=== PATIENT | female | born 1970 | race Caucasian/White ===

== ENCOUNTER 2016-06-28 07:38 | Day surgery (SDC) | payer OTHER ==
[~2016-06-28] VITALS: Ht 160 cm; Wt 55.8 kg
[~2016-06-28 07:38] MED LIST: BUDESONIDE EC3 MG PO; CURCUMIN PO; CYTOTEC200 MCG PO; DIGESTIVE EN1 TABLET PO; GLUTAMINE PO; MECLIZINE HCL25 MG PO; ONE DAILY WITH1 EACH PO; PREDNISONE10 MG PO; PREDNISONE20 MG PO; PROBIOTIC1 EAC3 PO; TRAMADOL HCL50 MG PO; VITAMIN B12-FO1 EACH PO; VITAMIN D10000 UNIT PO; VITAMIN D22000 UNIT PO; ZINC30 MG PO; ZOFRAN ODT4 MG PO
[2016-06-28 08:10] VITALS: BP 108/69
[2016-06-28] MEDS ORDERED: OXAYDO5 MG PO (12:00)
[2016-06-28] MEDS ORDERED: BACTRIM,SEPT1 TABLET PO (12:00)
[2016-06-28] MEDS ORDERED: CORTEF5 M1 PO ×2 (12:00→12:23)
[2016-06-28] MEDS ORDERED: CORTEF20 M1 PO ×2 (12:00→12:23)
[2016-06-28 13:54] VITALS: BP 104/53
[2016-06-28 14:53] VITALS: BP 106/59
[2016-06-28 15:44] VITALS: BP 107/55
== END 2016-06-28 15:50 | disposition home or self-care (01) ==
LOC: SDC 07:38
DX: N92.1 Excessive and frequent menstruation with irregular cycle (principal); E61.1 Iron deficiency; N72 Inflammatory disease of cervix uteri; N80.0 Endometriosis of uterus; N83.202 Unspecified ovarian cyst, left side; S37.23XA Laceration of bladder, initial encounter; Y92.234 Operating room of hospital as the place of occurrence of the external cause; Z80.41 Family history of malignant neoplasm of ovary; Z79.52 Long term (current) use of systemic steroids; Z82.49 Family history of ischemic heart disease and other diseases of the circulatory system; Z83.49 Family history of other endocrine, nutritional and metabolic diseases
CPT/HCPCS: 88307; J0131; J1100; J1170; J1580; J1720; J2175; J2250; J2405; J2710; J3010; J7050

== ENCOUNTER 2016-07-03 17:45 | Emergency (ER) | payer OTHER ==
[~2016-07-03] VITALS: Ht 160 cm; Wt 56.3 kg
[~2016-07-03 17:45] MED LIST changes: +BACTRIM,SEPT1 TABLET PO; +CORTEF20 M1 PO; +CORTEF5 M1 PO; +OXAYDO5 MG PO
[2016-07-03 18:15] LABS: HEMATOCRIT 39.7 % (36.0-46.0); MCH 25.5 PG (29.0-34.0); MCHC 30.2 G/DL (30.0-36.0); MCV 84.3 FL (83-99); MEAN PLAT.VOLUME 8.9 uM^3 (9.5-12.4); PLATELET COUNT 329 K/uL (156-360); RBC DIS.WIDTH-CV 20.2 % (11.8-14.6); RBC DIS.WIDTH-SD 59.9 % (39-53); RED BLOOD COUNT 4.71 M/uL (3.80-5.20); WHITE BLOOD COUNT 10.1 K/uL (4.1-10.2)
[2016-07-03 18:24] LABS: CHLORIDE 106 mEq/L (99-109); POTASSIUM 4.4 mEq/L (3.7-5.4); SODIUM 138 mEq/L (136-147)
[2016-07-03 18:26] LABS: GLUCOSE 133 mg/dL (70-99)
[2016-07-03 18:27] LABS: ANION GAP 10 MEQ/L (2-14)
[2016-07-03 18:28] LABS: TOTAL BILIRUBIN 0.3 mg/dL (0.0-1.0)
[2016-07-03 18:30] LABS: ALKALINE PHOSPHATASE 58 IU/L (3-129); GFR ESTIMATE (CALCULATED) 51 mL/min/
[2016-07-03 18:31] LABS: UREA NITROGEN (BUN) 17 mg/dL (9-23)
[2016-07-03 18:33] LABS: LIPASE 48 U/L (1.0-51.0)
[2016-07-03 18:42] LABS: ADD MIUA? YES; BILIRUBIN NEGATIVE; BLOOD LARGE; COLOR YELLOW ((YELLOW)); GLUCOSE (STRIP) NEGATIVE; KETONES NEGATIVE; LEUKOCYTES NEGATIVE; NITRITE NEGATIVE; PROTEIN (STRIP) 30; SPECIFIC GRAVITY 1.017 (1.000-1.030); UROBILINOGEN 0.2 MG/DL (0.2-1.0)
[2016-07-03 18:53] LABS: RED BLOOD CELLS TNTC /HPF (0-5)
[2016-07-03 18:54] LABS: BACTERIA 1+ /HPF; CALCIUM OXALATE CRYSTALS 1+ /HPF; CRYSTALS PRESENT; UCUL ADDED? NO; WHITE BLOOD CELLS 0-5 /HPF (0-5)
[2016-07-03 18:55] LABS: EPITHELIAL CELLS RARE /HPF; MUCUS TRACE /LPF
[2016-07-03] MEDS ORDERED: CIPRO500 MG PO (20:18)
[2016-07-03] MEDS ORDERED: FLAGYL500 MG PO (20:18)
[2016-07-03 20:37] VITALS: BP 115/65
== END 2016-07-03 20:38 | disposition home or self-care (01) ==
LOC: EME 17:45
PROVIDERS: Emergency Medicine
DX: R10.9 Unspecified abdominal pain (principal); Z90.710 Acquired absence of both cervix and uterus; Z96.0 Presence of urogenital implants; Z87.19 Personal history of other diseases of the digestive system; Z88.6 Allergy status to analgesic agent
CPT/HCPCS: 74177; 80053; 81003; 83605; 83690; 85027; 99281; 99285